=== PATIENT | male | born 1965 | race Caucasian/White ===

== ENCOUNTER 2018-01-21 09:38 | Emergency (ER) | payer OTHER, SELFPAY ==
[2018-01-21] MEDS ORDERED: Naproxen 500 MG TAB ONE (10:43)
[2018-01-21] MEDS ORDERED: Ondansetron ODT 4 MG TAB ONE (10:43)
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
[2018-01-21] MEDS ORDERED: Ondansetron HCl/PF 4 MG/2 ML Vial ONE (11:15)
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
== END 2018-01-21 13:30 | disposition home or self-care (01) ==
LOC: ERS 09:38
DX: M54.5 Low back pain (principal); M54.2 Cervicalgia; F17.210 Nicotine dependence, cigarettes, uncomplicated; V89.2XXA Person injured in unspecified motor-vehicle accident, traffic, initial encounter
CPT/HCPCS: 70450; 71045; 72100; 72125; J2405; Q0162

== ENCOUNTER 2018-07-09 07:38 | Outpatient (CLI) | payer OTHER ==
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
== END 2018-07-09 07:39 | disposition home or self-care (01) ==
LOC: BICMRI 07:38
PROVIDERS: ATTEND Family Medicine
DX: S39.012D Strain of muscle, fascia and tendon of lower back, subsequent encounter (principal); V89.2XXA Person injured in unspecified motor-vehicle accident, traffic, initial encounter; M47.816 Spondylosis without myelopathy or radiculopathy, lumbar region; M47.817 Spondylosis without myelopathy or radiculopathy, lumbosacral region
CPT/HCPCS: 72148

== ENCOUNTER 2018-08-13 09:50 | Outpatient (CLI) | payer OTHER ==
--- NOTE | 2018-08-13 13:29 | MRI ---
MRI LUMBAR SPINE WITH CONTRAST: Date: 08/13/18 INDICATION: Evaluate for possible sequestration within the left L3-4 foramina. COMPARISON: Prior MRI lumbar spine without contrast dated 07/09/18. CONTRAST: 20 mL MultiHance was utilized. FINDINGS: The left cephalad extending disc extrusion is in continuity with the protruded disc material projecti ng into the inferior aspect of the left L3-4 neural foramina consistent with a prominent left foramin al extrusion. This does abut the inferior margin of the exiting left L3 nerve root. No additional abn ormal region of enhancement is demonstrated. Please see the prior MRI of the lumbar spine without con trast dated 07/09/18 for full details concerning the remaining intervertebral lumbar levels. IMPRESSION: The left L3-4 foraminal extrusion does demonstrate that the herniated disc material in the left marcin sekou is in continuity with the left L3-4 disc and is not consistent with a sequestration. POS: [facility]
[2018-08-13] MEDS ORDERED: Gadobenate Dimeglumine 529 MG/1 ML (20ML VIAL) ONE (13:39)
== END 2018-08-13 09:51 | disposition home or self-care (01) ==
LOC: BICMRI 09:50
PROVIDERS: ATTEND Family Medicine
DX: S39.012D Strain of muscle, fascia and tendon of lower back, subsequent encounter (principal); M51.26 Other intervertebral disc displacement, lumbar region
CPT/HCPCS: 72149; A9577

== ENCOUNTER 2019-11-10 09:59 | Outpatient (CLI) | payer OTHER ==
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
== END 2019-11-10 10:00 | disposition home or self-care (01) ==
LOC: BICCT 09:59
PROVIDERS: ATTEND Neurological Surgery
DX: M51.16 Intervertebral disc disorders with radiculopathy, lumbar region (principal); M47.26 Other spondylosis with radiculopathy, lumbar region
CPT/HCPCS: 72131

== ENCOUNTER 2019-11-18 08:45 | Outpatient (CLI) | payer OTHER ==
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
== END 2019-11-18 08:46 | disposition home or self-care (01) ==
LOC: BICRAD 08:45
PROVIDERS: ATTEND Neurological Surgery
DX: M47.26 Other spondylosis with radiculopathy, lumbar region (principal)
CPT/HCPCS: 72110

== ENCOUNTER 2020-05-09 13:56 | Outpatient (CLI) | payer OTHER ==
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
== END 2020-05-09 13:57 | disposition home or self-care (01) ==
LOC: BICMRI 13:56
PROVIDERS: ATTEND Neurological Surgery
DX: M51.26 Other intervertebral disc displacement, lumbar region (principal); M47.816 Spondylosis without myelopathy or radiculopathy, lumbar region; M48.061 Spinal stenosis, lumbar region without neurogenic claudication
CPT/HCPCS: 72148